=== PATIENT | female | born 1960 | race Caucasian/White ===

== ENCOUNTER 2022-11-20 08:29 | Inpatient (IN) | payer BC ==
[~2022-11-20] VITALS: Ht 167.6 cm; Wt 90.0 kg
--- NOTE | 2022-11-20 08:36 | NUR ---
EKG 0860
[2022-11-20 09:01] LABS: BASOPHILS % (AUTO) 0.3 % (0-1); EOSINOPHILS % (AUTO) 0.1 % (0-6); HEMATOCRIT 42.4 % (35.0-45.0); HEMOGLOBIN 13.9 g/dl (12.0-16.0); LYMPHOCYTES # (AUTO) 0.9 X10'3 (1.1-4.8); LYMPHOCYTES % (AUTO) 6.1 % (21-51); MEAN CORPUSCULAR HEMOGLOBIN 32.6 PG (27.0-31.0); MEAN CORPUSCULAR HGB CONC 32.8 g/dL (33.0-36.5); MEAN CORPUSCULAR VOLUME 99.5 FL (78-98); MEAN PLATELET VOLUME 9.1 FL (7.4-10.4); MONOCYTES % (AUTO) 6.6 % (2-12); NEUTROPHILS # (AUTO) 13.1 X10'3 (1.8-7.7); NEUTROPHILS % (AUTO) 86.9 % (42-75); PLATELET COUNT 173 X10'3 (140-440); RED BLOOD COUNT 4.26 X10'6 (4.20-5.60); RED CELL DISTRIBUTION WIDTH 14.3 % (11.5-14.5); WHITE BLOOD COUNT 15.1 X10'3 (4.5-11.0)
[2022-11-20 09:28] LABS: D-DIMER 1.18 MG/L FEU (0-0.50)
[2022-11-20 09:30] LABS: ALANINE AMINOTRANSFERASE 61 U/L (12-78); ALBUMIN 3.2 G/DL (3.4-5.0); ALBUMIN/GLOBULIN RATIO 0.7 (1.1-1.5); ALKALINE PHOSPHATASE 135 IU/L (46-116); ANION GAP 9 (8-16); ASPARTATE AMINO TRANSFERASE 61 U/L (10-37); BILIRUBIN,TOTAL 1.6 MG/DL (0.1-1.0); BLOOD UREA NITROGEN 10 MG/DL (7-18); BUN/CREATININE RATIO 12.5 (10.0-20.0); CALCIUM 9.3 MG/DL (8.5-10.1); CHLORIDE 100 MMOL/L (99-107); GLUCOSE 113 MG/DL (70-104); POTASSIUM 3.6 MMOL/L (3.5-5.1); SODIUM 137 MMOL/L (135-145); TOTAL CARBON DIOXIDE 28.1 MMOL/L (24-32); TOTAL PROTEIN 7.9 G/DL (6.4-8.2); eGFR 72 ML/MIN
[2022-11-20 09:32] LABS: MAGNESIUM 2.1 MG/DL (1.5-2.4)
[2022-11-20] MEDS ORDERED: iohexol 350MG/ML 100ml bottle IV ONE (09:50)
--- NOTE | 2022-11-20 10:13 | NUR ---
PT NOTIFIED OF NEED FOR URINE SAMPLE, STATES SHE IS UNABLE AT THIS TIME
[2022-11-20] MEDS ORDERED: CefTRIAXone/D5W-Rocephin 1gm 50 ML IV ONE (12:10)
[2022-11-20] MEDS ORDERED: normal saline 1000ml 1,000 ML IV ONE (12:10)
[2022-11-20] MEDS ORDERED: azithromycin 250mg tablet PO ONE (12:10)
[2022-11-20 12:32] LABS: C-REACTIVE PROTEIN 7.92 MG/DL (0.0-0.5)
[2022-11-20] MEDS ORDERED: potassium Cl 40MEQ/1/2NS 520ml 520 ML IV PRN (13:50)
[2022-11-20] MEDS ORDERED: magnesium 2GM in 50ml NS 50 ML IV PRN (13:50)
[2022-11-20] MEDS ORDERED: PERFLUTREN PROTEIN-A MICROSPHR (Optison) 0.22 MG/ML 3ML VIAL IV ONE (13:50)
[2022-11-20] MEDS ORDERED: potassium Cl 20 mEq SR tablet PO PRN ×2 (13:50)
[2022-11-20] MEDS ORDERED: magnesium 4gm in 100ml NS 100 ML IV PRN (13:50)
[2022-11-20] MEDS ORDERED: magnesium Cl slow-release 64mg tablet PO PRN (13:50)
[2022-11-20] MEDS ORDERED: normal saline 1000ml 1,000 ML IV SCH (13:50)
[2022-11-20] MEDS ORDERED: ondansetron/PF 4mg/2ml inj IV PRN (13:50)
[2022-11-20] MEDS ORDERED: morphine 2 MG/ML inj. syringe IV PRN (13:50)
[2022-11-20] MEDS: levoFLOXACIN-Levaquin 500mg/D5 100 ML IV SCH (14:45)
[2022-11-20 14:59] LABS: CLARITY,URINE CLOUDY (Clear); COLOR,URINE YELLOW (Yellow); GLUCOSE, URINE NEGATIVE (Neg); KETONES,URINE NEGATIVE (Neg); LEUKOCYTE ESTERASE ,URINE NEGATIVE (Neg); NITRITES, URINE POSITIVE (Neg); OCCULT BLOOD,URINE NEGATIVE (Neg); PROTEIN,URINE TRACE mg/dl (Neg)
[2022-11-20] MEDS ORDERED: HYDR500C2 PO (14:59)
[2022-11-20] MEDS ORDERED: PRAV20TA4 PO (14:59)
[2022-11-20] MEDS ORDERED: BENA40TA90 PO (14:59)
[2022-11-20] MEDS ORDERED: ONDA-104 PO (14:59)
[2022-11-20] MEDS ORDERED: DIPH-522 PO (14:59)
[2022-11-20] MEDS ORDERED: VIT1TAB.9 PO (14:59)
[2022-11-20] MEDS ORDERED: ASPI-611 PO (14:59)
--- NOTE | 2022-11-20 15:07 | NUR ---
REPORT GIVEN TO GOLDIE RUBI RN LAST BM 11-18-22
[2022-11-20 15:15] LABS: UA COLLECTION TYPE CLN CATCH MIDSTREAM
[2022-11-20 15:17] LABS: BACTERIA,URINE 1+ /HPF (Neg); RBC,URINE 0-2 /HPF (0-2); SQUAMOUS EPITHELIAL CELL,UR MANY /LPF (FEW); WBC,URINE 0-4 /HPF (0-4)
[2022-11-20 15:30] VITALS: BP 135/72
--- NOTE | 2022-11-20 15:30 | NUR ---
Patient in room PCU 3015. I have received report from Christian LAMA and had the opportunity to ask questions and assume patient care. Pt arrived on floor via wheelchair. Pt breathing even and unlabored on room air. Pt denies pain. Pt reports chest pain/ SOB x 4 days. V/S BP 135/72, HR 103, RR 18, T 97.9, SPO2 93%, 0/10 pain.
[2022-11-20] MEDS: ipratropium/albuterol 3ml nebule NEB SCH ×3 (16:30→23:43)
--- NOTE | 2022-11-20 16:53 | NUR ---
Paged Page Sent PAGER ID: [phone] MESSAGE: [id number]- White. Pt has non productive wet cough. Pt requesting cough medicine. Markie Shields LVN
[2022-11-20] MEDS: guaiFENesin/DM 10ml UD oral syrup PO PRN ×2 (17:27→23:54)
[2022-11-20 18:00] VITALS: BP 146/77
--- NOTE | 2022-11-20 18:27 | NUR ---
Problems reprioritized. Patient report given, questions answered & plan of care reviewed with Yumiko KENDALL.
[2022-11-20] MEDS: K and/or MAG REPLACEMENT MC SCH (20:00)
[2022-11-20 22:00] VITALS: BP 120/74
--- NOTE | 2022-11-20 23:00 | NUR ---
pt refused her Hydrea dose at 2305 because she take them once in the morning and she advised she already took it today.
[2022-11-20] MEDS ORDERED: diphenoxylate/atropine tablet (Lomotil) PO PRN (23:05)
[2022-11-20] MEDS ORDERED: ondansetron 4mg rapidly disintigrating tab PO PRN (23:05)
[2022-11-21 02:00] VITALS: BP 136/77
[2022-11-21] MEDS: ipratropium/albuterol 3ml nebule NEB SCH ×3 (03:32→11:21)
[2022-11-21 06:00] VITALS: BP 137/78
--- NOTE | 2022-11-21 06:30 | NUR ---
Patient in room PCU 3015. I have received report from Yumiko KENDALL and had the opportunity to ask questions and assume patient care.
[2022-11-21 06:44] LABS: BASOPHILS % (AUTO) 0.1 % (0-1); EOSINOPHILS % (AUTO) 0 % (0-6); HEMATOCRIT 38.5 % (35.0-45.0); HEMOGLOBIN 12.5 g/dl (12.0-16.0); LYMPHOCYTES % (AUTO) 7.5 % (21-51); MEAN CORPUSCULAR HEMOGLOBIN 32.1 PG (27.0-31.0); MEAN CORPUSCULAR HGB CONC 32.3 g/dL (33.0-36.5); MEAN CORPUSCULAR VOLUME 99.4 FL (78-98); MEAN PLATELET VOLUME 9.3 FL (7.4-10.4); MONOCYTES % (AUTO) 7.5 % (2-12); NEUTROPHILS # (AUTO) 11.3 X10'3 (1.8-7.7); NEUTROPHILS % (AUTO) 84.9 % (42-75); PLATELET COUNT 168 X10'3 (140-440); RED BLOOD COUNT 3.87 X10'6 (4.20-5.60); RED CELL DISTRIBUTION WIDTH 14.2 % (11.5-14.5); WHITE BLOOD COUNT 13.3 X10'3 (4.5-11.0)
[2022-11-21 07:02] LABS: ALBUMIN 2.8 G/DL (3.4-5.0); ANION GAP 8 (8-16); BLOOD UREA NITROGEN 8 MG/DL (7-18); BUN/CREATININE RATIO 10.4 (10.0-20.0); CALCIUM 8.9 MG/DL (8.5-10.1); CHLORIDE 102 MMOL/L (99-107); CREATININE 0.77 MG/DL (0.40-0.90); GLUCOSE 112 MG/DL (70-104); MAGNESIUM 2.2 MG/DL (1.5-2.4); POTASSIUM 3.5 MMOL/L (3.5-5.1); SODIUM 139 MMOL/L (135-145); TOTAL CARBON DIOXIDE 29.2 MMOL/L (24-32); eGFR 76 ML/MIN
[2022-11-21] MEDS: guaiFENesin/DM 10ml UD oral syrup PO PRN (07:05)
[2022-11-21] MEDS: K and/or MAG REPLACEMENT MC SCH (07:52)
[2022-11-21] MEDS ORDERED: lisinopril 20mg tablet PO SCH (08:00)
[2022-11-21] MEDS ORDERED: methylPREDNISolone sod succ 125mg/2ml vial IV SCH (08:00)
[2022-11-21] MEDS ORDERED: aspirin 81mg, enteric-coated 1 TAB TABLET.DR PO SCH (08:00)
[2022-11-21] MEDS ORDERED: atorvastatin 10mg tablet PO SCH (08:00)
[2022-11-21] MEDS ORDERED: beta-carotene(A) w/C & E + minerals tab PO SCH (08:00)
[2022-11-21] MEDS: levoFLOXACIN-Levaquin 500mg/D5 100 ML IV SCH (08:55)
[2022-11-21 11:00] VITALS: BP 138/78
[2022-11-21] MEDS ORDERED: ALB0.5UD IH (11:19)
[2022-11-21] MEDS ORDERED: LEVO-65 PO (11:19)
--- NOTE | 2022-11-21 13:22 | NUR ---
All written and verbal instructions provided to patient. All questions answered. Medications were called into [facility] on [address]. Telebox discontinued. Pt will follow up with PCP. Pt ambulated via wheelchair to lobby. Pt went home via 's vehicle. Addendum: 11/21/22 at 1328 by Markie Shields LVN Amended: Links added.
== END 2022-11-21 13:45 | disposition home or self-care (01) | DRG 202 ==
LOC: ER 08:30 → ED HOLD 13:51 → PCU 3S 15:32
PROVIDERS: ADMIT Internal Medicine; ATTEND Internal Medicine
PROC: B32T1ZZ Computerized Tomography (CT Scan) of Left Pulmonary Artery using Low Osmolar Contrast (ICD-10-PCS; principal; 2022-11-20)
PROC: B3201ZZ Computerized Tomography (CT Scan) of Thoracic Aorta using Low Osmolar Contrast (ICD-10-PCS; 2022-11-20)
PROC: B32S1ZZ Computerized Tomography (CT Scan) of Right Pulmonary Artery using Low Osmolar Contrast (ICD-10-PCS; 2022-11-20)
DX: J20.9 Acute bronchitis, unspecified (principal); J18.9 Pneumonia, unspecified organism; J98.11 Atelectasis; D45 Polycythemia vera; E78.5 Hyperlipidemia, unspecified; I10 Essential (primary) hypertension; R09.02 Hypoxemia; Z88.0 Allergy status to penicillin; Z88.1 Allergy status to other antibiotic agents; Z79.899 Other long term (current) drug therapy; Z79.82 Long term (current) use of aspirin; Z90.49 Acquired absence of other specified parts of digestive tract
CPT/HCPCS: 36415; 71045; 71275; 80048; 80053; 81001; 83605; 83735; 83880; 84145; 84484; 85025; 85379; 85651; 86140; 87040; 87081; 93306; 94640; 94760; 96361; 96365; 99285; A4615; G0378; J0696; J1956; J2930; J3490; J7030; J7040; Q9967